=== PATIENT | male | born 1985 | race American Indian/Alaskan Native ===

== ENCOUNTER 2018-12-26 17:14 | Emergency (ER) | payer OTHER ==
[2018-12-26 17:36] VITALS: BP 120/78
--- NOTE | 2018-12-26 17:39 | Emergency Department Report ---
Chief Complaint: Extremity Injury, Upper Stated Complaint: ELBOW PAIN Time Seen by Provider: 12/26/18 17:34 - HPI History of Present Illness: right elbow pain that began a week ago pt states he was [place] a water park and hit his right arm against a water slide right elbow edema and large amount of ecchymosis hemorrhoids for 2-3 months rectal pain and bleeding bumps on scrotum states his "girlfriend has a fungal infection" has scrotal itching MSE screening note: Focused history and physical exam performed. Due to findings the following was ordered: XR of the right elbow ED Disposition for MSE Condition: Stable
--- NOTE | 2018-12-26 19:13 | XRay Report ---
PROCEDURE: XR ELBOW 3+V RT TECHNIQUE: 3 views HISTORY: right elbow pain, edema, ecchymosis COMPARISONS: None FINDINGS: There is no fracture or dislocation. The joint spaces are maintained. No fat pad elevation to indicate joint effusion. There is posterior soft tissue swelling. IMPRESSION: Soft tissue swelling. No osseous abnormality.. This document is electronically signed by Danny Peterson MD., December 26 2018 07:11:41 PM ET
--- NOTE | 2018-12-26 23:20 | Emergency Department Report ---
ED General Adult HPI - General Chief complaint: Extremity Injury, Upper Stated complaint: ELBOW PAIN Time Seen by Provider: 12/26/18 17:34 Source: patient Mode of arrival: Ambulatory Limitations: No Limitations - History of Present Illness Initial comments: A 33-year-old -[place] male to the emergency department complaining of hitting his right elbow while on a water slide about one week ago. Since that time. His has had some continued swelling and pain to the right elbow. No numbness or tingling. Pain is dull and throbbing as well as worse with palpation and certain range of motion. The swelling. He reports is not improved either. Also states she's been having some Penile Papules on His Testicular and Penile Region Which Is Pruritic in Nature for over 3 Years Treated with with Strains, but Has Noticed No Improvement. Has Not yet Follow- Up with Dermatology. Extremities Recommended, but Would like Further Evaluation Today. Also States That He's Had a 5-6 Year History of Chest Aches with Multiple ER E Evaluations Which Turned up No Specific Specific Findings and Seeking More Evaluation Today. Emesis, Hematemesis, No Hematochezia. No Wheezing, No Shortness of Breath, No Chest Trauma. No Presyncope. No Bruising. Severity scale (0 -10): 4 - Related Data Previous Rx's Medication Instructions Recorded Last Taken Type Ibuprofen [Motrin] 800 mg PO Q8HR PRN #30 tablet 07/13/15 Unknown Rx traMADol [Ultram 50 MG tab] 50 mg PO Q6HR PRN #20 tablet 07/13/15 Unknown Rx Ibuprofen [Motrin] 600 mg PO Q8H PRN #20 tablet 09/07/18 Unknown Rx Hydrocortisone [Anusol-Hc] 1 gm RC BID #30 cream..g. 12/26/18 Unknown Rx Mupirocin [Bactroban 2%] 1 applic TP TID #1 tube 12/26/18 Unknown Rx Sulfamethoxazole/Trimethoprim 1 each PO BID #14 tablet 12/26/18 Unknown Rx [Bactrim 400-80 mg Tablet] Allergies Allergy/AdvReac Type Severity Reaction Status Date / Time No Known Allergies Allergy Verified 12/26/18 17:15 ED Review of Systems ROS: Stated complaint: ELBOW PAIN Other details as noted in HPI Constitutional: denies: chills, fever Eyes: denies: eye pain, eye discharge, vision change ENT: denies: ear pain, throat pain Respiratory: denies: cough, shortness of breath, wheezing Cardiovascular: denies: chest pain, palpitations Endocrine: no symptoms reported Gastrointestinal: denies: abdominal pain, nausea, diarrhea Genitourinary: denies: urgency, dysuria Musculoskeletal: joint swelling. denies: back pain, arthralgia Skin: denies: rash, lesions Neurological: denies: headache, weakness, paresthesias Psychiatric: denies: anxiety, depression Hematological/Lymphatic: denies: easy bleeding, easy bruising ED Past Medical Hx - Social History Smoking Status: Current Every Day Smoker Substance Use Type: Alcohol, Marijuana - Medications Home Medications: Home Medications Medication Instructions Recorded Confirmed Last Taken Type Ibuprofen [Motrin] 800 mg PO Q8HR PRN #30 tablet 07/13/15 Unknown Rx traMADol [Ultram 50 MG tab] 50 mg PO Q6HR PRN #20 tablet 07/13/15 Unknown Rx Ibuprofen [Motrin] 600 mg PO Q8H PRN #20 tablet 09/07/18 Unknown Rx Hydrocortisone [Anusol-Hc] 1 gm RC BID #30 cream..g. 12/26/18 Unknown Rx Mupirocin [Bactroban 2%] 1 applic TP TID #1 tube 12/26/18 Unknown Rx Sulfamethoxazole/Trimethoprim 1 each PO BID #14 tablet 12/26/18 Unknown Rx [Bactrim 400-80 mg Tablet] ED Physical Exam - General Limitations: No Limitations General appearance: alert, in no apparent distress - Head Head exam: Present: atraumatic, normocephalic - Eye Eye exam: Present: normal appearance - ENT ENT exam: Present: mucous membranes moist - Neck Neck exam: Present: normal inspection - Respiratory Respiratory exam: Present: normal lung sounds bilaterally. Absent: respiratory distress - Cardiovascular Cardiovascular Exam: Present: regular rate, normal rhythm. Absent: systolic murmur, diastolic murmur, rubs, gallop - GI/Abdominal GI/Abdominal exam: Present: soft, normal bowel sounds - Rectal Rectal exam: Present: deferred - Extremities Exam Extremities exam: Present: normal inspection, tenderness, joint swelling, other (there is tenderness along the olecranon process with some healing ecchymosis to the medial aspect of the elbow. Full range of motion. Pain with flexion in the olecranon region. Pulses 2+ plus. Capillary refills are brisk.) - Back Exam Back exam: Present: normal inspection, full ROM. Absent: CVA tenderness (R), CVA tenderness (L), paraspinal tenderness, vertebral tenderness - Neurological Exam Neurological exam: Present: alert, oriented X3, CN II-XII intact, normal gait - Psychiatric Psychiatric exam: Present: normal affect, normal mood. Absent: anxious, flat affect, manic - Skin Skin exam: Present: warm, dry, intact, normal color. Absent: rash ED Course Vital Signs 12/26/18 17:34 Temperature 98.8 F Pulse Rate 79 Respiratory 20 Rate Blood Pressure 120/78 O2 Sat by Pulse 98 Oximetry ED Medical Decision Making - Medical Decision Making I advised the [place] the importance of maintaining compliance with the primary care provider to help manage the host of medical problems which he presents here today. Advised him that on his his hemorrhoids as well as his scrotal bumps. Also, I discussed with him in detail the injury results of his right elbow which was his initial primary complaint. He also has been having some some chest pain for 5 years, but is asymptomatic at this time. I discussed with him some options for oral follow-up. He also would like to have a full STD profile is. He states his girlfriend continues to get a recurrent bacterial infection. He wants to make sure it is not him, but he has had no penile burning or discharge today. No testicular swelling or testicular pain. - Differential Diagnosis [place], Lichen nitidus, Molluscum Contagiosum, pearly penile papules Critical care attestation.: If time is entered above; I have spent that time in minutes in the direct care of this critically ill patient, excluding procedure time. ED Disposition Clinical Impression: Olecranon bursitis, right elbow, Contusion, Penile rash Disposition: DC-01 TO HOME OR SELFCARE Is pt being admited?: No Does the pt Need Aspirin: No Condition: Stable Instructions: Elbow Bursitis (ED), Acute Rash (ED) Additional Instructions: Be sure to follow with dermatology and primary care for further evaluation of the penile rash and and reevaluation of your right elbow. Rash may Beese secondary to an infectious processes to be sure to complete the entire biotics, also may be secondary to [place]. . Keep the groin clean and dry the use of a area dry products for a powder product for the groin region. Be sure to applied ice to the elbow, limited repetitive activity of the elbow and further trauma. Prescriptions: Hydrocortisone [Anusol-Hc] 1 gm RC BID #30 cream..g. Sulfamethoxazole/Trimethoprim [Bactrim 400-80 mg Tablet] 1 each PO BID #14 tablet Mupirocin [Bactroban 2%] 1 applic TP TID #1 tube Referrals: PUMA MANNING MD [Staff Physician] - 3-5 Days [facility] MD JA [Primary Care Provider] - 3-5 Days NELLA BURLESON MD [Staff Physician] - 3-5 Days MAUREEN CLINTON MD [Staff Physician] - 3-5 Days SHIRLENE DUFFY MD [Referring] - 3-5 Days [facility] [Referring] - 3-5 Days [facility] [Outside] - 3-5 Days
== END 2018-12-27 00:31 | disposition home or self-care (01) ==
LOC: ED 17:14
DX: S50.01XA Contusion of right elbow, initial encounter (principal); M70.21 Olecranon bursitis, right elbow; N48.89 Other specified disorders of penis; F17.200 Nicotine dependence, unspecified, uncomplicated; W22.8XXA Striking against or struck by other objects, initial encounter; Y93.89 Activity, other specified; Y92.89 Other specified places as the place of occurrence of the external cause; Y99.8 Other external cause status
CPT/HCPCS: 99283